=== PATIENT | male | born 1970 | race African-American/Black ===

== ENCOUNTER 2018-02-16 12:37 | Inpatient (IN) | payer BC ==
[~2018-02-16] VITALS: Ht 160 cm; Wt 127.5 kg
[2018-02-16 12:40] VITALS: Ht 160 cm; Wt 127.5 kg
[2018-02-16 13:18] LABS: PLATELET COUNT 291 x10^3mcL (130-400); RED CELL DISTRIBUTION WIDTH 12.6 % (11.5-14.5)
[2018-02-16 13:21] LABS: BASOPHIL % 3.2 % (0-2)
[2018-02-16 13:24] LABS: CALCIUM 9.1 mg/dL (8.5-10.1); CARBON DIOXIDE 37.3 mmol/L (21-32); CREATININE SERUM 1.9 mg/dL (0.7-1.3); POTASSIUM SERUM 3.3 mmol/L (3.5-5.1)
[2018-02-16 13:29] LABS: BILIRUBIN TOTAL 1.01 mg/dL (0.20-1.00); TOTAL PROTEIN, SERUM 7.4 g/dL (6.4-8.2)
[2018-02-16 13:41] LABS: ALBUMIN 3.3 g/dL (3.4-5.0)
[2018-02-16] MEDS ORDERED: COREG12.5 MG PO (16:02)
[2018-02-16] MEDS ORDERED: ELIQUIS5 MG PO (16:02)
[2018-02-16] MEDS ORDERED: ERYTHROMYCIN B250 MG PO (16:03)
[2018-02-16] MEDS ORDERED: JANUVIA100 M1 PO (16:03)
[2018-02-16] MEDS ORDERED: LASIX20 MG PO (16:04)
[2018-02-16] MEDS ORDERED: LEVEMIR100 U/M1 SQ (16:04)
[2018-02-16] MEDS ORDERED: LEVO-T50 MCG PO (16:05)
[2018-02-16] MEDS ORDERED: COZAAR100 MG PO (16:05)
[2018-02-16] MEDS ORDERED: PHE25S PR (16:07)
[2018-02-16 16:44] VITALS: BP 200/116
[2018-02-16 16:55] LABS: MAGNESIUM 1.7 mg/dL (1.8-2.4); PHOSPHOROUS 3.5 mg/dL (2.5-4.9)
[2018-02-16 16:56] LABS: T3 TOTAL 0.93 ng/mL
[2018-02-16 17:01] LABS: CHOLESTEROL/HDL RATIO 3.5
[2018-02-16 17:14] LABS: UA SPECIFIC GRAVITY 1.025 (1.005-1.035); microscopic required? YES; urine erythrocyte 1+ (NEGATIVE)
[2018-02-16 17:23] LABS: FREE T4 1.48 ng/dL (0.76-1.46); FREE THYROXINE INDEX 4.8 ug/dL (1.4-4.5); T4(THYROXINE) 12.7 ug/dL (4.7-13.3)
[2018-02-16 18:05] VITALS: BP 175/103
[2018-02-16 20:59] VITALS: BP 134/92
[2018-02-16 21:09] VITALS: BP 134/92
[2018-02-17] VITALS (8 sets, daily range): BP systolic 137–198; BP diastolic 84–116
[2018-02-17 06:00] LABS: CALCIUM 8.6 mg/dL (8.5-10.1); CARBON DIOXIDE 32.4 mmol/L (21-32); CREATININE SERUM 2.2 mg/dL (0.7-1.3); MAGNESIUM 1.6 mg/dL (1.8-2.4); PHOSPHOROUS 4.2 mg/dL (2.5-4.9); POTASSIUM SERUM 3.5 mmol/L (3.5-5.1)
[2018-02-17 07:04] LABS: BASOPHIL % 0.6 % (0-2); PLATELET COUNT 263 x10^3mcL (130-400); RED CELL DISTRIBUTION WIDTH 13.7 % (11.5-14.5)
[2018-02-17 14:46] LABS: AMPHETAMINE QUAL UR NONE DETECTED (See below)
[2018-02-18 05:18] VITALS: BP 174/95
[2018-02-18 06:49] VITALS: BP 149/76
[2018-02-18 09:46] VITALS: BP 143/70
[2018-02-18 12:06] LABS: BASOPHIL % 0.3 % (0-2); PLATELET COUNT 261 x10^3mcL (130-400); RED CELL DISTRIBUTION WIDTH 13.4 % (11.5-14.5)
[2018-02-18 12:21] LABS: CALCIUM 8.3 mg/dL (8.5-10.1); CARBON DIOXIDE 28.3 mmol/L (21-32); CREATININE SERUM 1.6 mg/dL (0.7-1.3)
[2018-02-18 12:40] VITALS: BP 168/92
[2018-02-18 14:08] VITALS: BP 134/66
[2018-02-18] MEDS ORDERED: PRO40 PO (16:50)
[2018-02-18] MEDS ORDERED: CARAFATE1 GM PO (16:57)
[2018-02-18] MEDS ORDERED: REG5 PO (16:58)
[2018-02-18 17:12] VITALS: BP 134/66
[2018-02-18] MEDS ORDERED: CORE25 PO (17:13)
== END 2018-02-18 18:08 | disposition home or self-care (01) | DRG 73 ==
LOC: ED 12:37 → DU 15:47
PROVIDERS: Emergency Medicine; Family Medicine; Internal Medicine
PROC: 0DJ08ZZ Inspection of Upper Intestinal Tract, Via Natural or Artificial Opening Endoscopic (ICD-10-PCS; principal; 2018-02-18 08:00)
DX: E11.43 Type 2 diabetes mellitus with diabetic autonomic (poly)neuropathy (principal); N17.0 Acute kidney failure with tubular necrosis; I13.0 Hypertensive heart and chronic kidney disease with heart failure and stage 1 through stage 4 chronic kidney disease, or unspecified chronic kidney disease; I24.8 Other forms of acute ischemic heart disease; K20.9 Esophagitis, unspecified; K31.84 Gastroparesis; I50.9 Heart failure, unspecified; E78.00 Pure hypercholesterolemia, unspecified; E11.22 Type 2 diabetes mellitus with diabetic chronic kidney disease; N18.3 Chronic kidney disease, stage 3 (moderate); I16.0 Hypertensive urgency; E11.65 Type 2 diabetes mellitus with hyperglycemia; E87.6 Hypokalemia; E78.5 Hyperlipidemia, unspecified; F17.210 Nicotine dependence, cigarettes, uncomplicated; I25.2 Old myocardial infarction; Z90.49 Acquired absence of other specified parts of digestive tract; Z79.4 Long term (current) use of insulin; Z79.899 Other long term (current) drug therapy; Z82.49 Family history of ischemic heart disease and other diseases of the circulatory system; I48.0 Paroxysmal atrial fibrillation; K27.9 Peptic ulcer, site unspecified, unspecified as acute or chronic, without hemorrhage or perforation; E11.21 Type 2 diabetes mellitus with diabetic nephropathy; I25.5 Ischemic cardiomyopathy; K29.80 Duodenitis without bleeding
CPT/HCPCS: 43235; 82962; 83880; 84439; C9113; J0360; J1610; J1815; J1885; J2250; J2310; J2405; J2765; J3010; J3490; J7030; J7040; J7042; Q0092; Q0162

== ENCOUNTER 2018-03-31 08:52 | Emergency (ER) | payer BC ==
[~2018-03-31] VITALS: Ht 160 cm; Wt 127.0 kg
[~2018-03-31 08:52] MED LIST: CARAFATE1 GM PO; CORE25 PO; COREG12.5 MG PO; COZAAR100 MG PO; ELIQUIS5 MG PO; ERYTHROMYCIN B250 MG PO; JANUVIA100 M1 PO; LASIX20 MG PO; LEVEMIR100 U/M1 SQ; LEVO-T50 MCG PO; PHE25S PR; PRO40 PO; REG5 PO
[2018-03-31 09:05] VITALS: Ht 160 cm; Wt 127.0 kg
[2018-03-31] MEDS ORDERED: AMIODARONE HCL200 MG PO (10:15)
[2018-03-31] MEDS ORDERED: CHLOROPHYLL (10:15)
[2018-03-31 10:56] LABS: CALCIUM 7.9 mg/dL (8.5-10.1); CARBON DIOXIDE 25.8 mmol/L (21-32); CREATININE SERUM 1.5 mg/dL (0.7-1.3)
[2018-03-31 11:01] LABS: BILIRUBIN TOTAL 0.4 mg/dL (0.20-1.00); TOTAL PROTEIN, SERUM 6.5 g/dL (6.4-8.2)
[2018-03-31 11:03] LABS: ALBUMIN 2.8 g/dL (3.4-5.0)
[2018-03-31 11:11] LABS: BASOPHIL % 0.4 % (0-2); PLATELET COUNT 274 x10^3mcL (130-400); RED CELL DISTRIBUTION WIDTH 13.7 % (11.5-14.5)
[2018-03-31 12:08] VITALS: BP 191/112
== END 2018-03-31 12:08 | disposition home or self-care (01) ==
LOC: ED 08:52
PROVIDERS: Emergency Medicine
DX: K31.84 Gastroparesis (principal); N18.9 Chronic kidney disease, unspecified; R73.9 Hyperglycemia, unspecified
CPT/HCPCS: J1364; J2270; J2405; J2765; J7030

== ENCOUNTER 2018-04-02 09:00 | Emergency (ER) | payer BC ==
[~2018-04-02] VITALS: Ht 160 cm; Wt 127.0 kg
[~2018-04-02 09:00] MED LIST changes: +AMIODARONE HCL200 MG PO; +CHLOROPHYLL
[2018-04-02 09:04] VITALS: Ht 160 cm; Wt 127.0 kg
[2018-04-02 10:00] LABS: BASOPHIL % 0.2 % (0-2); PLATELET COUNT 296 x10^3mcL (130-400); RED CELL DISTRIBUTION WIDTH 13.5 % (11.5-14.5)
[2018-04-02 10:44] LABS: CALCIUM 9.3 mg/dL (8.5-10.1); CARBON DIOXIDE 27.5 mmol/L (21-32); CREATININE SERUM 1.8 mg/dL (0.7-1.3); POTASSIUM SERUM 4.6 mmol/L (3.5-5.1)
[2018-04-02 10:49] LABS: ALBUMIN 3.4 g/dL (3.4-5.0); BILIRUBIN TOTAL 0.6 mg/dL (0.20-1.00); TOTAL PROTEIN, SERUM 7.1 g/dL (6.4-8.2)
[2018-04-02 16:03] VITALS: BP 135/85
== END 2018-04-02 16:30 | disposition home or self-care (01) ==
LOC: ED 09:00
PROVIDERS: Emergency Medicine
DX: E11.43 Type 2 diabetes mellitus with diabetic autonomic (poly)neuropathy (principal); K31.84 Gastroparesis; E86.0 Dehydration; I13.0 Hypertensive heart and chronic kidney disease with heart failure and stage 1 through stage 4 chronic kidney disease, or unspecified chronic kidney disease; E11.22 Type 2 diabetes mellitus with diabetic chronic kidney disease; N18.3 Chronic kidney disease, stage 3 (moderate); I50.9 Heart failure, unspecified; E78.00 Pure hypercholesterolemia, unspecified; Z90.49 Acquired absence of other specified parts of digestive tract
CPT/HCPCS: 36415; 82962; J1815; J2270; J2765; J3490; J7030; Q0092; Q0162

== ENCOUNTER 2018-06-12 15:21 | Inpatient (IN) | payer BC ==
[~2018-06-12] VITALS: Ht 160 cm; Wt 125.2 kg
--- NOTE | 2018-06-12 15:52 | NUR ---
PT. AMBULATED TO BED 4. PT AAOX4, RESPIRATIONS EVEN AND UNLABORED. PT REPORTS N/V X 3 DAYS, DENIES DIZZINESS. PT LAST REPORTS VOMITING MINUTES BEFORE AMBULATING TO BED. PT ABD IS SOFT AND ROUND, PT RATES ABD PAIN 8/10. PT SKIN IS WARM AND HE IS DIAPHORETIC.
--- NOTE | 2018-06-12 16:09 | NUR ---
ATTEMPTED IV X 2 UNSUCCESSFULLY; SCAR TISSUE NOTED. PT STATES HE IS ALWAYS A HARD STICK. PCXR DONE. PT VOMITED APPROX 150 CC TANNISH LIQUID.
[2018-06-12 16:52] LABS: PLATELET COUNT 307 x10^3mcL (130-400); RED CELL DISTRIBUTION WIDTH 14.3 % (11.5-14.5)
[2018-06-12 16:53] LABS: BASOPHIL % 0 % (0-2)
[2018-06-12 16:55] LABS: CALCIUM 9.8 mg/dL (8.5-10.1); CARBON DIOXIDE 32.7 mmol/L (21-32); CREATININE SERUM 1.6 mg/dL (0.7-1.3); POTASSIUM SERUM 4.5 mmol/L (3.5-5.1)
[2018-06-12 17:00] LABS: ALBUMIN 3.6 g/dL (3.4-5.0); BILIRUBIN TOTAL 0.66 mg/dL (0.20-1.00); TOTAL PROTEIN, SERUM 8.2 g/dL (6.4-8.2)
--- NOTE | 2018-06-12 17:20 | NUR ---
PT. SLEEPING IN BED, VISIBLE CHEST RISE AND FALL. PT AT BEDSIDE.
--- NOTE | 2018-06-12 18:27 | NUR ---
RESIDENTS AT BEDSIDE. PT AAOX4, RESPIRATIONS EVEN AND UNLABORED. PT STATES HIS PAIN HAS DECREASED TO A 2/10.
--- NOTE | 2018-06-12 18:45 | NUR ---
CALLED [facility] TO CORRECT MED REC.
[2018-06-12] MEDS ORDERED: ERYTHROMYCIN B250 MG PO (18:48)
[2018-06-12 19:28] LABS: MAGNESIUM 2.2 mg/dL (1.8-2.4); PHOSPHOROUS 3.3 mg/dL (2.5-4.9)
[2018-06-12 19:29] LABS: CHOLESTEROL/HDL RATIO 3.1
[2018-06-12 19:58] VITALS: BP 155/92
--- NOTE | 2018-06-12 20:00 | NUR ---
PT SEEN LYING IN BED, CAME IN DUE TO ABDOMINAL PAIN X2 DAYS. PT IS LETHARGIC, AROUSABLE TO TOUCH, ORIENTED X4. DENIES HEADACHE/DIZZINESS. ABLE TO FOLLOW COMMANDS. NO SOB NOTED, LUNG SOUNDS CTA. DENIES CHEST PAIN/PRESSURE. DENIES ABDOMINAL DISCOMFORT. BOWEL SOUNDS HYPOACTIVE. ABDOME IS SOFT AND ROUND. LAST BM=06/12/18, FORMED. IV SITE ON THE LEJ PATENT AND INTACT. SIDE RAILS UPX2. CALL LIGHT ON REACH. AT BEDSIDE. HOB ELEVATED AT 30 DEG. PRIMARY NURSE CAM FOR CONTINUITY OF CARE
[2018-06-12 20:07] VITALS: Ht 160 cm; Wt 125.2 kg
--- NOTE | 2018-06-12 21:43 | NUR ---
CURRICULUM DIRECTOR AT BEDSIDE AT THIS TIME FOR ORDERED US ABD.
--- NOTE | 2018-06-12 21:55 | NUR ---
ALL DUE MEDS GIVEN WITHOUT INCIDENT. PT DENIES PAIN OR DISCOMFORT AT THIS TIME. NO ACUTE DISTRESS OBSERVED. CALL LIGHT WITHIN REACH. WILL CONTINUE TO MONITOR
--- NOTE | 2018-06-13 01:30 | NUR ---
NO ACUTE DISTRESS NOTED AT THIS TIME. PT LAYING IN BED, BREATHING EVEN AND UNLABORED, APPEARS ASLEEP. CALL LIGHT WITHIN REACH. WILL CONTINUE TO MONITOR
--- NOTE | 2018-06-13 05:45 | NUR ---
NO SIGNIFICANT CHANGES TO REPORT, PT COMPLIED WITH NURSING CARE THROUGHOUT THE SHIFT WITH NO ACUTE EVENTS OVERNIGHT. PT DENIES ANY NAUSEA OF VOMITING AT THIS TIME. EMESIS BAG REMAINS WITHIN REACH. NO DISTRESS NOTED AT THIS TIME, PT LAYING IN BED, BREATHING EVEN AND UNLABORED. COMFORT AND SAFETY MEASURES MAINTAINED. ALL NEEDS ASSESSED AND ATTENDED TO. CALL LIGHT WITHIN REACH. WILL CONTINUE TO MONITOR AND ENDORSE CARE TO DAY SHIFT NURSE
[2018-06-13 05:55] VITALS: BP 118/65
[2018-06-13 07:09] LABS: CALCIUM 9.1 mg/dL (8.5-10.1); CARBON DIOXIDE 29.4 mmol/L (21-32); CREATININE SERUM 2.3 mg/dL (0.7-1.3)
--- NOTE | 2018-06-13 07:15 | NUR ---
PT SEEN REST ON BED, NO COMPLAIN OF PAIN AND NAUSEA AT THIS TIME. PT BREATHING ON RA, EVEN, UNLABORED. IV SITE PATENT, INTACT, IV INFUSING WELL.
[2018-06-13 07:19] LABS: BASOPHIL % 0.7 % (0-2); PLATELET COUNT 318 x10^3mcL (130-400); RED CELL DISTRIBUTION WIDTH 14.6 % (11.5-14.5)
--- NOTE | 2018-06-13 08:30 | NUR ---
PT HAD 50% BREAKFAST, TOLERATE WELL, REPORT MILD NAUSEA.
[2018-06-13 09:56] VITALS: BP 159/91
[2018-06-13 11:38] LABS: UA SPECIFIC GRAVITY >=1.030 (1.005-1.035); microscopic required? YES; urine erythrocyte 2+ (NEGATIVE)
[2018-06-13 11:53] LABS: AMPHETAMINE QUAL UR NONE DETECTED (See below)
--- NOTE | 2018-06-13 12:10 | NUR ---
PT'S AT BED SIDE. PT COMPLAIN OF NAUSEA, REGLAN IV GIVEN PER ORDER. CONFIRMED WITH DR. NASSAR IT IS OK SALINE LOCK.
[2018-06-13 12:55] VITALS: BP 149/85
[2018-06-13 16:42] VITALS: BP 121/60; BP 173/111
--- NOTE | 2018-06-13 18:24 | NUR ---
PT'S BP ELEVATED 179/108, HR 81 BPM. PT DENIED PAIN AND NAUSEA. COREG SCHEDULED AT 2100 GIVEN EARLIER. PT BREATHING ON RA, EVEN, UNLABORED. IV SALINE LOCK AT THIS TIME. WILL ENDORSE COMING NURSE TO CONTINUE MONITORING.
[2018-06-13 19:05] VITALS: BP 136/82
--- NOTE | 2018-06-13 19:06 | NUR ---
PT REST ON BED WITH AT BED SIDE. RECHECKED PT'S BP 136/82, HR 84 BPM. PT NO COMPLAIN OF PAIN AND NAUSEA AT THIS TIME. WILL ENDORSE PT CARE TO RECEIVING NURSE.
--- NOTE | 2018-06-13 19:35 | NUR ---
PT RESTING IN BED, NO ACUTE DISTRESS NOTED. AOX4, PT SLEEPING BUT EASILY AROUSABLE. TELE #5. SR W/ INVERTED T WAVE. DENIES CP. PULSES PALPABLE BILAT, DENIES NUMBNESS/TINGLING IN FEET. PT ON ELIQUIS FOR HX OF A FIB. RESP EVEN AND UNLABORED ON RA, DENIES SOB. ABD SOFT, ROUND, OBESE PT. DENIES PAIN WITH PALPATION. REPORT LBM WAS SOFT IN DAYSHIFT. PT VOIDS FREELY W/O DYSURIA. GENERALIZED WEAKNESS, AMB. SKIN INTACT. IV SITE TO LEJ SALINE LOCKED. PT ON ERYHTROMYCIN PO FOR GM GASTROPARESIS. ALL COMFORT AND SAFETY MEASURES PROVIDED FOR, CALL LIGHT WITHIN REACH, BED IN LOWEST POSITION, WILL CONTINUE TO MONITOR.
[2018-06-13 20:46] VITALS: BP 128/72
[2018-06-14 05:03] VITALS: BP 135/76
--- NOTE | 2018-06-14 05:15 | NUR ---
PT RESTED IN INTERVALS DURING SHIFT, NO ACUTE CHANGES OCCURRING OVERNIGHT. PT DENIES N/V/D. MEDICATED X1 WITH NORCO FOR MUSCLE SORENESS. IV SITE TO LEJ, NO REDNESS, SWELLING OR PAIN NOTED. ALL COMFORT AND SAFETY MEASURES PROVIDED FOR, CALL LIGHT WITHIN REACH, BED IN LOWEST POSITION, WILL CONTINUE TO MONITOR.
[2018-06-14 07:23] LABS: BASOPHIL % 1.4 % (0-2); PLATELET COUNT 261 x10^3mcL (130-400); RED CELL DISTRIBUTION WIDTH 13.1 % (11.5-14.5)
--- NOTE | 2018-06-14 07:25 | NUR ---
RECEIVED PT. IN BED A/A/O X3. NO SOB, NO N/V NOTED. PT. DENIES ANY PAIN AT THIS TIME. IV SITE NOTED TO L NECK. BED IN LOW POS., CALL LIGHT WITHIN REACH. SIDE RAILS UP X3.
--- NOTE | 2018-06-14 07:33 | NUR ---
ALL CARE ENDORSED TO DAYSHIFT NURSE, NO ACUTE DISTRESS NOTED. ALL QUESTIONS AND CONCERNS ADDRESSED.
[2018-06-14 07:43] LABS: CALCIUM 8.8 mg/dL (8.5-10.1); CARBON DIOXIDE 29.2 mmol/L (21-32); CREATININE SERUM 1.9 mg/dL (0.7-1.3); PHOSPHOROUS 4.2 mg/dL (2.5-4.9); POTASSIUM SERUM 3.5 mmol/L (3.5-5.1)
[2018-06-14 09:39] VITALS: BP 156/91
--- NOTE | 2018-06-14 11:00 | NUR ---
PT. IS TO BE DISCHARGED HOME TODAY. PT. STATED HIS WILL COME AFTER 3:30 PM TO PICK HIM UP.
[2018-06-14 13:15] VITALS: BP 142/76
--- NOTE | 2018-06-14 16:00 | NUR ---
D/C HOME INSTRUCTIONS GIVEN TO PT. WHO VERBALIZED UNDERSTANDING OF INSTRUCTIONS. IV H/L TO L NECK REMOVED. TELE. MONITOR #5 REMOVED AND RETURNED TO TELE. MONITOR STATION.
--- NOTE | 2018-06-14 17:13 | NUR ---
ARRIVED TO ROOM. PT. IS BEING DISCHARGED IN STABLE CONDITION VIA WHEELCHAIR. ALL BELONGINGS SENT HOME WITH PT. UPON DISCHARGE.
== END 2018-06-14 17:10 | disposition home or self-care (01) | DRG 73 ==
LOC: ED 15:21 → DU 17:55
PROVIDERS: Emergency Medicine; ADMIT Internal Medicine
DX: E11.43 Type 2 diabetes mellitus with diabetic autonomic (poly)neuropathy (principal); N17.0 Acute kidney failure with tubular necrosis; Z68.42 Body mass index [BMI] 45.0-49.9, adult; D68.69 Other thrombophilia; I13.0 Hypertensive heart and chronic kidney disease with heart failure and stage 1 through stage 4 chronic kidney disease, or unspecified chronic kidney disease; K31.84 Gastroparesis; E11.22 Type 2 diabetes mellitus with diabetic chronic kidney disease; E11.65 Type 2 diabetes mellitus with hyperglycemia; E78.00 Pure hypercholesterolemia, unspecified; I16.0 Hypertensive urgency; I48.91 Unspecified atrial fibrillation; N18.3 Chronic kidney disease, stage 3 (moderate); I50.9 Heart failure, unspecified; E78.5 Hyperlipidemia, unspecified; R74.0 Nonspecific elevation of levels of transaminase and lactic acid dehydrogenase [LDH]; Z79.4 Long term (current) use of insulin; I25.2 Old myocardial infarction; Z90.49 Acquired absence of other specified parts of digestive tract; Z82.49 Family history of ischemic heart disease and other diseases of the circulatory system
CPT/HCPCS: 82962; 83880; C9113; J1630; J1815; J2060; J2765; J3490; J7030; Q0092

== ENCOUNTER 2018-09-26 13:37 | Emergency (ER) | payer BC ==
[~2018-09-26] VITALS: Ht 157.5 cm; Wt 126.6 kg
[2018-09-26 13:39] VITALS: Ht 157.5 cm; Wt 126.6 kg
[2018-09-26 16:59] LABS: BASOPHIL % 0.3 % (0-2); PLATELET COUNT 260 x10^3mcL (130-400); RED CELL DISTRIBUTION WIDTH 13.4 % (11.5-14.5)
[2018-09-26 17:02] LABS: CALCIUM 8.6 mg/dL (8.5-10.1); CARBON DIOXIDE 30.7 mmol/L (21-32); CREATININE SERUM 1.9 mg/dL (0.7-1.3); POTASSIUM SERUM 3.4 mmol/L (3.5-5.1)
[2018-09-26 17:08] LABS: ALBUMIN 2.9 g/dL (3.4-5.0); BILIRUBIN TOTAL 0.7 mg/dL (0.20-1.00); TOTAL PROTEIN, SERUM 6.3 g/dL (6.4-8.2)
[2018-09-26 19:57] VITALS: BP 165/109
== END 2018-09-26 19:57 | disposition home or self-care (01) ==
LOC: ED 13:37
PROVIDERS: Emergency Medicine
DX: K52.9 Noninfective gastroenteritis and colitis, unspecified (principal); E86.0 Dehydration
CPT/HCPCS: Q0092

== ENCOUNTER 2018-11-13 14:04 | Emergency (ER) | payer SELFPAY ==
[~2018-11-13] VITALS: Ht 167.6 cm; Wt 126.1 kg
[~2018-11-13 14:04] MED LIST changes: +AMIODARONE H50 MG/M1; -AMIODARONE HCL200 MG PO
[2018-11-13 14:35] VITALS: Ht 167.6 cm; Wt 126.1 kg
[2018-11-13 16:23] LABS: BASOPHIL % 0.3 % (0-2); PLATELET COUNT 255 x10^3mcL (130-400)
[2018-11-13 16:33] LABS: CALCIUM 9.4 mg/dL (8.5-10.1); CREATININE SERUM 1.9 mg/dL (0.7-1.3); POTASSIUM SERUM 4.3 mmol/L (3.5-5.1)
[2018-11-13 16:37] LABS: ALBUMIN 3.4 g/dL (3.4-5.0); BILIRUBIN TOTAL 0.72 mg/dL (0.20-1.00); TOTAL PROTEIN, SERUM 7.5 g/dL (6.4-8.2)
[2018-11-13 19:09] VITALS: BP 150/85
== END 2018-11-13 19:09 | disposition home or self-care (01) ==
LOC: ED 14:04
DX: E11.43 Type 2 diabetes mellitus with diabetic autonomic (poly)neuropathy (principal); K31.84 Gastroparesis; E78.00 Pure hypercholesterolemia, unspecified; E11.22 Type 2 diabetes mellitus with diabetic chronic kidney disease; I13.0 Hypertensive heart and chronic kidney disease with heart failure and stage 1 through stage 4 chronic kidney disease, or unspecified chronic kidney disease; N18.3 Chronic kidney disease, stage 3 (moderate)
CPT/HCPCS: J1630; J3010

== ENCOUNTER 2018-12-09 09:51 | Inpatient (IN) | payer BC ==
[~2018-12-09] VITALS: Ht 157.5 cm; Wt 123.8 kg
[2018-12-09 09:59] VITALS: Ht 157.5 cm; Wt 123.8 kg
--- NOTE | 2018-12-09 10:23 | NUR ---
PT BROUGHT IN BY SELF WITH C/O N/V AND CHEST PAIN X 3 DAYS. AT BEDSIDE PT IS AAOX4. RESPS E/U. SKIN IS PINK, WARM AND DRY. PERRLA. PT PLACED ON MONITOR. BED RAILS UP X1 FOR SAFETY. PT ORIENTED TO ROOM, USE OF CALL CHUNG AND BED IN LOWEST POSITION. PT IS CALM AND COOPERATIVE. PT AMBULATED FROM LOBBY TO ED WITH STEADY GAIT. PT AWAITING MSE.
--- NOTE | 2018-12-09 10:44 | NUR ---
ED PHYSICIAN AT BEDSIDE FOR PATIENT EVALUATION. MEDICAL SCREENING EXAMINATION COMPLETED BY ED PHYSICIAN DR. ISAAC
--- NOTE | 2018-12-09 11:14 | NUR ---
PT MEDICATED PER MD ORDERS. SEE EMAR FOR DETAILS. PT VERBALIZED UNDERSTANDING OF MEDICAITON.
[2018-12-09 11:17] LABS: PLATELET COUNT 305 x10^3mcL (130-400)
[2018-12-09 11:20] LABS: BASOPHIL % 0 % (0-2)
--- NOTE | 2018-12-09 11:23 | NUR ---
XRAY AT BEDSIDE, PT CALM AND COOPERATIVE.
[2018-12-09 11:26] LABS: CALCIUM 8.6 mg/dL (8.5-10.1)
[2018-12-09 11:48] LABS: BILIRUBIN TOTAL 0.82 mg/dL (0.20-1.00)
[2018-12-09 11:59] LABS: CARBON DIOXIDE 29.8 mmol/L (21-32); CREATININE SERUM 1.9 mg/dL (0.7-1.3)
[2018-12-09 12:01] LABS: ALBUMIN 3.1 g/dL (3.4-5.0)
--- NOTE | 2018-12-09 13:24 | NUR ---
PT AWAKE, ALERT, DENIES CP, STATES ABD PAIN 10/31, +NAUSEA BP 200/111, WILL INFORM MD.
--- NOTE | 2018-12-09 14:17 | NUR ---
PER DR. ISAAC HOLD ON THE HALDOL AT THE MOMENT.
--- NOTE | 2018-12-09 14:20 | NUR ---
PT C/O OF NAUSEA. DR. CRAWLEY MADE AWARE. GIVE ZOFRAN 4MG IVP.
--- NOTE | 2018-12-09 15:09 | NUR ---
PT RESTING IN A POSITION OF COMFORFT. PT AAOX4. RESPS EVEN AND UNLABORED. CALL LIGHT WITHIN REACH. BED IN LOW POSITION WITH SIDE RAILS UP X1. APPEARS TO BE NO DISTRESS AT THIS TIME. NO CHANGE IN PT STATUS. WILL CONITINUE TO MONITOR.
--- NOTE | 2018-12-09 15:33 | NUR ---
ATTEMPT TO CALL CYNTHIA, NO ANSWER.
--- NOTE | 2018-12-09 15:40 | NUR ---
HAND-OFF REPORT TO RICARDO MARIE TO ASSUME CARE FOR PT.
[2018-12-09 15:46] LABS: MAGNESIUM 1.8 mg/dL (1.8-2.4); PHOSPHOROUS 2.7 mg/dL (2.5-4.9)
[2018-12-09 15:48] LABS: CHOLESTEROL/HDL RATIO 3.9
[2018-12-09 15:50] LABS: T3 TOTAL 0.94 ng/mL
[2018-12-09 15:53] LABS: FREE T4 1.24 ng/dL (0.76-1.46); FREE THYROXINE INDEX 3.4 ug/dL (1.4-4.5); T4(THYROXINE) 9.9 ug/dL (4.7-13.3)
[2018-12-09 16:15] VITALS: BP 186/105
--- NOTE | 2018-12-09 16:23 | NUR ---
RECEIVED PT FROM ER, PT ADMIT FOR CHEST PAIN, PT IS A/O X4, VERBAL RESPONSIVE, LUNG SOUND CLEAR BILATERAL, NO COUGH, NO SOB, PT IS ON TELE 12, NSR, DENY ANY CHEST PAIN OR DISCOMFORT, BOWEL SOUND PRESENT ALL 4 QUADRANTS, NO DISTENTION, BUT C/O N/V AND ABD PAIN AT THIS MOMENT. PEDAL PULSE PRESENT BOTH FEET, NO EDEMA NOTED, IV AT RIGHT HAND, NO LEAKING, NO INFILTRAITON. B/P 186/105 AT THIS MOMENT, ENDORSE ALL INFORMATION TO PRIMARY NURSE. ALL ADLS ASSIST, ALL NEED MET, CALL LIGHT IN REACH, WILL CONTINUE TO MONITOR.
--- NOTE | 2018-12-09 18:07 | NUR ---
AT 1620 - TOOK OVER CARE OF PATIENT. ADMITTED WITH C/O NAUSEA/VOMITING FOR 7 DAYS. CHEST PAIN TODAY. ADMITTING NURSE DOING HISTORY AND INITIAL ASSESSMENT. COMMENCED IV INFUSION OF NS AT 100 ML/HR. GIVEN REGLAN AND PRILOSEC PER EMAR. CALL PALCED FOR DR ESCALANTE FOR DIET ORDER. AT 1633 - BLOOD GLUCOSE LEVEL 383. GIVEN REGULAR INSULIN 15 UNTIS PER SLIDING SCALE. DR LOPEZ AT BEDSIDE. AT 1800 - EATING DINNER. AT 1820 - BP 196/[address] LOPEZ CONTACTED AND RECEIVED ORDER FOR HYDRALAZINE IV.
[2018-12-09 18:18] VITALS: BP 196/122
[2018-12-09 18:36] VITALS: BP 179/107
--- NOTE | 2018-12-09 18:37 | NUR ---
PATIENT GIVEN HYDRALZINE 10 MG IVP. BP PRIOR TO AMINSITRATION = 195/120. 3 MIN POST ADMINITRATION 179/107 MAP 133. HR 95. SINUS RHYTHM. PATIENT DENIES ANY PAIN. CONTINUING TO MONITOR.
[2018-12-09 18:42] VITALS: BP 153/99
--- NOTE | 2018-12-09 18:50 | NUR ---
BP IS 153/99, 10 MIN AFTER ADMINISTRATION OF HYDRALAZINE. PATIENT RESTING QUIETLY. DENIES ANY PAIN. FAMILY VISITING. WILL ENDORSE CARE TO NIGHT NURSE.
--- NOTE | 2018-12-09 20:05 | NUR ---
RECIEVED PT FROM DAY NURSE. PT RESTING IN BED AT THIS TIME. A/OX4, CALM AND COOPERATIVE. TELE 12, NSR. DENIES CP, NV, DIZZINESS, AND PALPATATIONS. PALPABLE PULSES, NO EDEMA NOTED. HX OF AFIB, MEDICATED WITH ELIQUIS. BREATHING E/U ON RA. ABD SOFT AND ROUND, GENERALIZED ABD PAIN TO PALPATION. RHAND IV, CDI AND INFUSING. BED AT LOWEST POSITION. CALL LIGHT WITHIN REACH. WILL CONTINUE TO MONITOR.
[2018-12-09 20:52] VITALS: BP 111/64
--- NOTE | 2018-12-09 21:20 | NUR ---
PT COMPLAINING OF INSOMNIA. MEDICATED PT WITH PRN AMBIAN.
[2018-12-10] VITALS (7 sets, daily range): BP systolic 103–182; BP diastolic 70–115
--- NOTE | 2018-12-10 | NUR ---
PT RESTING IN BED COMFORTABLY AT THIS TIME. NO S/S OF PAIN OR DISCOMFORT NOTED. BREATHING E/U ON RA. BED AT LOWEST POSITION. CALL LIGHT WITHIN REACH. WILL CONTINUE TO MONITOR.
[2018-12-10 06:29] LABS: CALCIUM 8.4 mg/dL (8.5-10.1); CARBON DIOXIDE 28.8 mmol/L (21-32); CREATININE SERUM 2.2 mg/dL (0.7-1.3); MAGNESIUM 1.8 mg/dL (1.8-2.4); PHOSPHOROUS 3.5 mg/dL (2.5-4.9); POTASSIUM SERUM 3.3 mmol/L (3.5-5.1)
--- NOTE | 2018-12-10 06:40 | NUR ---
PT RESTING IN BED AT THIS TIME. NO S/S OF PAIN. DENIES NV. BREATHING E/U ON RA, BED AT LOWEST POSITION. CALL LIGHT WITHIN REACH. WILL ENDORSE TO DAY NURSE.
[2018-12-10 06:41] LABS: BASOPHIL % 0.8 % (0-2); PLATELET COUNT 284 x10^3mcL (130-400)
--- NOTE | 2018-12-10 07:35 | NUR ---
RECEIVED PT IN BED A/A/OX4 DENIES RODGERS. RESP EVEN AND UNLABORED WITH CLEAR BS BILAT. DENIES ANY SOB/CP/PRESSURE AT THIS TIME. NSR ON TELE. NOTED WITH TRACE EDEMA TO BLE. ABD SOFT, OBESE, NONTENDER WITH ACTIVE BS X4. DENIES ANY N/V AT THIS TIME. VOIDING FREELY. AMBULATORY. CALL LIGHT IN REACH NEEDS ATTENDED TO.
[2018-12-10 09:17] LABS: UA SPECIFIC GRAVITY 1.025 (1.005-1.035); microscopic required? YES; urine erythrocyte 1+ (NEGATIVE)
--- NOTE | 2018-12-10 11:20 | NUR ---
PT RESTING AT THIS TIME. DENIES ANY DISCOMFORT. CALL LIGHT IN REACH NEEDS ATTENDED TO.
[2018-12-10 11:35] LABS: AMPHETAMINE QUAL UR NONE DETECTED (See below)
--- NOTE | 2018-12-10 14:45 | NUR ---
PT RESTING COMFORTABLY AT THIS TIME. DENIES ANY DISCOMFORT. REMAINS AT BEDSIDE. CALL LIGHT IN REACH NEEDS ATTENDED TO.
--- NOTE | 2018-12-10 18:10 | NUR ---
NOTED ORDER FROM CARDIOLOGY TO TRANSFER PT MED-SURG SERVICES. PT MADE AWARE AND TELE REMOVED. PT DENIES ANY DISCOMFORT AT THIS TIME. REPORTED IMPROVEMENT WITH GASTRIC PAIN WITH NORCO. NO EPISODES OF N/V AT THIS TIME.
--- NOTE | 2018-12-10 19:25 | NUR ---
RECIEVED PT IN NO ACUTE DISTRESS. AOX4. MED SURG. DENIES CP. NITRO PATCH IN PLACE TO L CHEST WALL. BREATHING E/U. TRACE EDEMA NOTED TO BLE. BOWEL SOUNDS HYPOACTIVE. DENIES N/V. DENIES PAIN. IV TO R HAND, PATENT AND INFUSING. BED IN LOWEST POSITION, 2 SIDE RAILS UP, CALL LIGHT IN REACH. INSTRUCTED TO CALL FOR ASSISTANCE.
[2018-12-11 00:47] VITALS: BP 130/72
--- NOTE | 2018-12-11 02:20 | NUR ---
RESTING IN BED WITH EYES CLOSED. BREATHING E/U. NO ACUTE DISTRESS NOTED. WILL CONTINUE TO MONITOR.
[2018-12-11 05:20] VITALS: BP 155/95
--- NOTE | 2018-12-11 06:19 | NUR ---
NO C/O CP OR N/V OVERNIGHT. NO ACUTE DISTRESS NOTED. WILL ENDORSE TO ONCOMING RN.
[2018-12-11 06:50] LABS: CALCIUM 8.2 mg/dL (8.5-10.1); CARBON DIOXIDE 29.2 mmol/L (21-32); CREATININE SERUM 2.3 mg/dL (0.7-1.3); MAGNESIUM 1.7 mg/dL (1.8-2.4); PHOSPHOROUS 3.7 mg/dL (2.5-4.9); PLATELET COUNT 292 x10^3mcL (130-400); POTASSIUM SERUM 3.8 mmol/L (3.5-5.1)
--- NOTE | 2018-12-11 07:40 | NUR ---
RECEIVED PT IN BED A/A/OX4 DENIES RODGERS. RESP EVEN AND UNLABORED WITH CLEAR BREATH SOUNDS BILAT. DENIES ANY SOB/CP/PRESSURE AT THIS TIME. HX OF AFIB RHYTHM AUSCULTATED WAS AFIB WITH HR 82. NOTED WITH +1 EDEMA TO BLE. ON IVF D5 1/2NS WITH 10KCL AT 83.33. ABD SOFT, OBESE, NONTENDER WITH ACTTIVE BS X4. REPORTS OCC EPIGASRIC PAIN, GERD DISCOMFORT, AND N/V. NONE AT THIS TIME. VOIDING FREELY AND AMBULATORY. BED IN LOW POSITION. CALL LIGHT IN REACH NEEDS ATTENDED TO.
[2018-12-11 08:33] VITALS: BP 153/85
--- NOTE | 2018-12-11 09:50 | NUR ---
SCHOOL HEALTH AIDE AT BEDSIDE UPDATED PT ON POC. MADE AWARE THAT HE WILL BE D/C HOME THIS AFTERNOON. PT AGREABLE WITH D/C PLAN. CALL LIGHT IN REACH NEEDS ATTENDED TO.
--- NOTE | 2018-12-11 10:10 | NUR ---
BAKER TEST AURY MADE AWARE OF MG 1.7, AND THAT PT CONT WITH IVF D5 1/2NS WITH 10KCL. PER BAKER TEST SL IVF PT WILL BE D/C AT LUNCH TIME.
[2018-12-11] MEDS ORDERED: LIPITOR40 MG PO (11:28)
[2018-12-11] MEDS ORDERED: APR10 PO (12:38)
[2018-12-11] MEDS ORDERED: PACERONE200 MG PO (12:49)
[2018-12-11 12:50] VITALS: BP 145/87
--- NOTE | 2018-12-11 13:54 | NUR ---
PT FAMILY PROVIDED WITH D/C HOME INSTRUCTIONS. GIVEN MEDICATION/PRESCRIPTION EDUCATION. INSTRUCTED TO SCHEDULE F/U APPT WITH PCP WITH IN 2-3 DAYS. PROVIDED WITH WRITTEN AND VERBAL INSTRUCTIONS ON DIABETES AND CHF. PT AND FAMILY VERBALIZED UNDERSTANDING OF INSTRUCTIONS. IV D/C'D CATHETER INTACT. PT TRANSPORTED TO [facility] VIA WITH ALL PERSONAL BELONGINGS IN HAND FREE OF ANY APPARENT DISTRESS.
== END 2018-12-11 13:53 | disposition home or self-care (01) | DRG 74 ==
LOC: ED 09:51 → DU 15:06 → MU 12-10 18:07
PROVIDERS: Emergency Medicine; ADMIT Internal Medicine
DX: E11.43 Type 2 diabetes mellitus with diabetic autonomic (poly)neuropathy (principal); I13.0 Hypertensive heart and chronic kidney disease with heart failure and stage 1 through stage 4 chronic kidney disease, or unspecified chronic kidney disease; I42.8 Other cardiomyopathies; I50.22 Chronic systolic (congestive) heart failure; E11.65 Type 2 diabetes mellitus with hyperglycemia; K31.84 Gastroparesis; I12.9 Hypertensive chronic kidney disease with stage 1 through stage 4 chronic kidney disease, or unspecified chronic kidney disease; N18.3 Chronic kidney disease, stage 3 (moderate); I48.2 Chronic atrial fibrillation; I16.0 Hypertensive urgency; R07.9 Chest pain, unspecified; E11.22 Type 2 diabetes mellitus with diabetic chronic kidney disease; E78.5 Hyperlipidemia, unspecified; I48.0 Paroxysmal atrial fibrillation; Z90.49 Acquired absence of other specified parts of digestive tract; I25.2 Old myocardial infarction; Z68.39 Body mass index [BMI] 39.0-39.9, adult; Z79.84 Long term (current) use of oral hypoglycemic drugs
CPT/HCPCS: 82962; 83880; 84439; G0378; J0360; J1815; J1885; J2270; J2405; J2765; J3490; J7030; J8597; Q0092

== ENCOUNTER 2019-01-05 11:39 | Emergency (ER) | payer BC ==
[~2019-01-05] VITALS: Ht 157.5 cm; Wt 122.9 kg
[~2019-01-05 11:39] MED LIST changes: +APR10 PO; +LIPITOR40 MG PO; +PACERONE200 MG PO
[2019-01-05 11:51] VITALS: Ht 157.5 cm; Wt 122.9 kg
[2019-01-05 13:38] LABS: BASOPHIL % 0.2 % (0-2); PLATELET COUNT 261 x10^3mcL (130-400); RED CELL DISTRIBUTION WIDTH 14.5 % (11.5-14.5)
[2019-01-05 13:49] LABS: CALCIUM 9.5 mg/dL (8.5-10.1); CARBON DIOXIDE 29.6 mmol/L (21-32); CREATININE SERUM 1.8 mg/dL (0.7-1.3); POTASSIUM SERUM 4.3 mmol/L (3.5-5.1)
[2019-01-05 13:53] LABS: ALBUMIN 3.7 g/dL (3.4-5.0); BILIRUBIN TOTAL 0.8 mg/dL (0.20-1.00); TOTAL PROTEIN, SERUM 8.1 g/dL (6.4-8.2)
[2019-01-05 17:11] VITALS: BP 166/93
== END 2019-01-05 17:11 | disposition home or self-care (01) ==
LOC: ED 11:39
PROVIDERS: Specialist
DX: E11.43 Type 2 diabetes mellitus with diabetic autonomic (poly)neuropathy (principal); K31.84 Gastroparesis; I13.0 Hypertensive heart and chronic kidney disease with heart failure and stage 1 through stage 4 chronic kidney disease, or unspecified chronic kidney disease; E11.22 Type 2 diabetes mellitus with diabetic chronic kidney disease; I50.9 Heart failure, unspecified; N18.3 Chronic kidney disease, stage 3 (moderate); E78.00 Pure hypercholesterolemia, unspecified; Z90.49 Acquired absence of other specified parts of digestive tract; Z98.890 Other specified postprocedural states
CPT/HCPCS: J1885; J2405; J3010; J3490; J7030

== ENCOUNTER 2019-03-25 14:25 | Emergency (ER) | payer BC ==
[~2019-03-25] VITALS: Ht 157.5 cm; Wt 118.8 kg
[2019-03-25 14:30] VITALS: Ht 157.5 cm; Wt 118.8 kg
[2019-03-25 17:36] LABS: BASOPHIL % 0.5 % (0-2); PLATELET COUNT 298 x10^3mcL (130-400); RED CELL DISTRIBUTION WIDTH 13.3 % (11.5-14.5)
[2019-03-25 17:39] LABS: CARBON DIOXIDE 26.9 mmol/L (21-32); CREATININE SERUM 1.8 mg/dL (0.7-1.3); POTASSIUM SERUM 4.3 mmol/L (3.5-5.1)
[2019-03-25 17:44] LABS: BILIRUBIN DIRECT 0.17 mg/dL (0.0-0.2); BILIRUBIN TOTAL 0.7 mg/dL (0.20-1.00); TOTAL PROTEIN, SERUM 7.6 g/dL (6.4-8.2)
[2019-03-25 17:49] LABS: ALBUMIN 3.3 g/dL (3.4-5.0)
[2019-03-25 18:57] LABS: CALCIUM 8.6 mg/dL (8.5-10.1); CARBON DIOXIDE 28.7 mmol/L (21-32); CREATININE SERUM 1.8 mg/dL (0.7-1.3); POTASSIUM SERUM 4.7 mmol/L (3.5-5.1)
[2019-03-25 20:58] VITALS: BP 183/111
== END 2019-03-25 20:58 | disposition home or self-care (01) ==
LOC: ED 14:25
PROVIDERS: Student in an Organized Health Care Education/Training Program
DX: K31.84 Gastroparesis (principal); E78.00 Pure hypercholesterolemia, unspecified; E11.22 Type 2 diabetes mellitus with diabetic chronic kidney disease; I13.0 Hypertensive heart and chronic kidney disease with heart failure and stage 1 through stage 4 chronic kidney disease, or unspecified chronic kidney disease; N18.3 Chronic kidney disease, stage 3 (moderate); E66.01 Morbid (severe) obesity due to excess calories; Z90.49 Acquired absence of other specified parts of digestive tract
CPT/HCPCS: J2765; J7030